=== PATIENT | male | born 2000 | race African-American/Black ===

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

== ENCOUNTER 2021-04-21 10:15 | Emergency (ER) | payer SELFPAY ==
[~2021-04-21] VITALS: Ht 170.2 cm; Wt 68.0 kg
[~2021-04-21 10:15] MED LIST: NYST15CR2 TP; PRED50TA PO; [UNRECOGNIZED DRUG - CODE] TP
[2021-04-21 10:36] VITALS: BP 135/63
--- NOTE | 2021-04-21 11:54 | PHYS DOC ---
Past Medical History Past Medical History: Asthma Past Surgical History: No Surgical History Smoking Status: Never Smoker Alcohol Use: None Drug Use: Marijuana General Adult EDM: Chief Complaint: EARACHE/EAR PAIN HPI: HPI: Patient is a 21 year old male presents to the emergency department complaining of muffled sounds from his right ear for the past 4 days after trying to clean his ear wax out with an ear curette. Patient does complain of mild ear pain. Patient states he can still hear sounds however there is decreased when compared to his left ear. Patient denies any nasal or chest congestion, denies any recent fever or chills, denies any chest pain or shortness of breath, denies any rashes of his skin. Patient denies any visual disturbances or dizziness. Patient denies any syncopal episodes. Patient denies smoking cigarettes, reports drinking an occasional beer on the weekends, reports smoking marijuana. Patient denies any other illicit drug use. Denies any other physical complaints or physical concerns. Patient reports his last tetanus immunization was less than 5 years ago. Review of Systems: Review of Systems: 14 body systems of review of systems have been reviewed. See HPI for pertinent positives and negative responses, otherwise all other systems are negative, nonpertinent or noncontributory. Constitutional: Negative except as outlined in HPI above. Skin: Negative except as outlined in HPI above. Eyes: Negative except as outlined in HPI above. HENT: Negative except as outlined in HPI above. Respiratory: Negative except as outlined in HPI above. Cardiovascular: Negative except as outlined in HPI above. GI: Negative except as outlined in HPI above. : Negative except as outlined in HPI above. Musculoskeletal: Negative except as outlined in HPI above. Integument: Negative except as outlined in HPI above. Neurologic: Negative except as outlined in HPI above. Endocrine: Negative except as outlined in HPI above. Lymphatic: Negative except as outlined in HPI above. Psychiatric: Negative except as outlined in HPI above. Heart Score: C/O Chest Pain: No Risk Factors: Risk Factors: DM, Current or recent (<one month) smoker, HTN, HLP, family history of CAD, obesity. Risk Scores: Score 0 - 3: 2.5% MACE over next 6 weeks - Discharge Home Score 4 - 6: 20.3% MACE over next 6 weeks - Admit for Clinical Observation Score 7 - 10: 72.7% MACE over next 6 weeks - Early Invasive Strategies Allergies: Allergies: Allergies Coded Allergies Type Severity Reaction Last Updated Verified No Known Drug Allergies 09/15/17 No Physical Exam: PE: Constitutional: Well developed, well nourished, no acute distress, non-toxic appearance. 21-year-old male in no apparent distress. Strong smell of marijuana in room during physical examination. HENT: Normocephalic, atraumatic. No lymphadenopathy of the head or neck appreciated, left tympanic membrane within normal limits, no drainage from external auditory canal. Right tympanic membrane unable to visualize related to cerumen impaction, mild erythema to visualize portion of auditory canal. No bleeding appreciated, no drainage. Eyes: Conjunctiva normal, no discharge. Neck: Normal range of motion, no stridor. Cardiovascular: No cyanosis appreciated, distal cap refill less than 2 seconds. Lungs & Thorax: Patient is in no respiratory distress, no audible adventitious lung sounds appreciated. Abdomen: Nontender, no abnormalities noted. Skin: Warm, dry, no erythema, no rash. Back: No tenderness, no deformities. Extremities: No tenderness, no cyanosis, no clubbing, ROM intact, no edema. Neurologic: Alert and oriented X 3, normal motor function, normal sensory functi on, no focal deficits noted. Psychologic: Affect normal, judgement normal, mood normal. Current Patient Data: Vital Signs: Vital Signs Date Time Temp Pulse Resp B/P (MAP) Pulse Ox O2 Delivery O2 Flow Rate FiO2 04/21/21 10:36 98.4 58 16 135/63 97 Room Air 98.4 EKG: EKG: [] Radiology/Procedures: Radiology/Procedures: [] Course & Med Decision Making: Course & Med Decision Making Pertinent Labs and Imaging studies reviewed. (See chart for details) 21-year-old male, vital signs reviewed, presents to the emergency department complaining of muffled sounds from her right ear after using ear curette to remove earwax. Physical examination and presentation consistent with patient's description of events. Patient does have cerumen impaction in right ear, the patient does report being able to hear however is muffled, low likelihood of ruptured tympanic membrane, will order irrigation of right ear for cerumen impaction removal. Will reexamine ear after irrigation complete. ED nurse reports large amount of cerumen removal with irrigation, reports patient stated he needed to go home now, irrigation and removal of cerumen i mpaction not completed. Upon reexamination of the patient, patient remains nontoxic in appearance, neurovascularly intact, hemodynamically stable, reexamination of the right auditory canal still shows cerumen impaction, TM not visualized. Discussed with patient may use veeh-siq-gqfjpcv Debrox, follow-up with ENT if not improving by Saturday, will give ENT recommendation, patient is amendable to this plan reporting he has used Debrox in the past. Will discharge patient home for wrus-jow-zskirqz Debrox use. Discussed with the patient all findings and diagnostic testing as well as the need to follow-up with their primary care provider for further evaluation and treatment or return to the ED if any new or worsening symptoms. Strict return precautions were also discussed at length, the patient voiced understanding and agreement with the discharge planning. The patient was nontoxic in appearance, in no apparent distress, and hemodynamically stable at the time of disposition. Dragon Disclaimer: Targeted Growth Disclaimer: This electronic medical record was generated, in whole or in part, using a voice recognition dictation system. Departure Departure Impression: Primary Impression: Impacted cerumen of right ear Disposition: HOME / SELF CARE / HOMELESS Condition: GOOD Referrals: UNKNOWN PCP NAME (PCP) Patient Instructions: Cerumen Impaction Additional Instructions: You were seen today in the emergency department for muffled ear sounds on your right ear, the evaluation revealed a wax impaction. You have stated that you have had these in the past. This wax impaction was most likely related to you attempting to remove the wax at home. We had attempted to remove the wax with irrigation, but you have stated your need to leave the emergency department, as we discussed, please try the fcez-kvn-tjmsfiw medication Debrox or Cerumenex to assist with earwax removal. You have indicated that you have used these medications in the past with some success. If unsuccessful, please follow-up with an ENT specialist, you may consider making an appointment with ENT specialist Dr. Breezy Arevalo located at [address] [place] [address], [id number], telephone number area code [phone], or you may use any ENT specialist of your choice. Please return immediately to the emergency department for sudden increase in pain uncontrolled with jetg-lwv-xbflyuc pain medications, bleeding from your ear, sudden hearing loss. Thank you for visiting our Emergency Department. It was a pleasure taking care of you today in the emergency department and we appreciate you trusting us with your care. If any additional problems come up don't hesitate to return to visit us. Please follow up with your primary care provider so they can plan additional care if needed and know about the problem that you had. If symptoms worsen come back to the Emergency Department. Any concerning symptoms that start such as chest pain, shortness of air, weakness or numbness on one side of the body, running high fevers or any other concerning symptoms return to the ER. EMERGENCY DEPARTMENT GENERAL DISCHARGE INSTRUCTIONS Thank you for coming to [facility] Emergency Department (ED) today and trusting us with you care. We trust that you had a positive experience in our Emergency Department. If you wish to speak to the department management, you may call the Director at [phone]. YOUR FOLLOW UP INSTRUCTIONS ARE FOLLOWS: 1. Do you have a private Doctor? If you do not have a private doctor, please ask for a resource list of physicians or clinics that may be able to assist you with follow up care. 2. The Emergency Physicain has interpreted your x-rays. The X-Ray specialist will also review them. If there is a change in the findings, you will be notified in 48 hours when at all possible. 3. A lab test or culture has been done, your results will be reviewed and you will be notified if you need a change in treatment. ADDITIONAL INSTRUCTIONS AND INFORMATION: 1. Your care today has been supervised by a physician who is specially trained in emergency care. Many problems require more than one evaluation for a complete diagnosis and treatment. We recommend that you schedule your follow up appointment as recommended to ensure complete treatment of you illness or injury. If you are unable to obtain follow up care and continue to have a problem, or if your condition worsens, we recommend that you return to the ED. 2. We are not able to safely determine your condition over the phone nor are we able to give sound medical advice over the phone. For these safety reasons, if you call for medical advice we will ask you to come to the ED for further evaluation. 3. If you have any questions regarding these discharge instructions please call the ED at [phone]. SAFETY INFORMATION: In the interest of safety, wellness, and injury prevention; we encourage you to wear your sealbelt, if you smoke; quite smoking, and we encourage family to use a prote ctive helmet for bicycling and other sporting events that present an increased risk for head injury. IF YOUR SYMPTOMS WORSEN OR NEW SYMPTOMS DEVELOP, OR YOU HAVE CONCERNS ABOUT YOUR CONDITION; OR IF YOUR CONDITION WORSENS WHILE YOU ARE WAITING FOR YOUR FOLLOW UP APPOINTMENT; EITHER CONTACT YOUR PRIMARY CARE DOCTOR, THE PHYSICIAN WHOSE NAME AND NUMBER YOU WERE GIVEN, OR RETURN TO THE ED IMMEDIATELY. JUAREZ REHMAN ELECTRIC TRANSFER OPERATOR Apr 21, 2021 11:54
== END 2021-04-21 14:20 | disposition home or self-care (01) ==
LOC: ER 10:15
DX: H61.21 Impacted cerumen, right ear (principal); J45.909 Unspecified asthma, uncomplicated
CPT/HCPCS: 69209; 99282